=== PATIENT | male | born 1960 | race Caucasian/White ===

== ENCOUNTER 2019-02-19 20:57 | Emergency (ER) | payer BC ==
[~2019-02-19] VITALS: Ht 175.3 cm; Wt 102.7 kg
[2019-02-19] MEDS ORDERED: BUPROPION HCL150 M2 PO (21:30)
[2019-02-19] MEDS ORDERED: SIMVASTATIN40 MG PO (21:31)
[2019-02-19] MEDS ORDERED: ARIPIPRAZOLE10 MG PO (21:31)
[2019-02-19] MEDS ORDERED: CYANOCOBAL1000 MCG/M IJ (21:31)
[2019-02-19] MEDS ORDERED: LOPID600 MG PO (21:32)
[2019-02-19] MEDS ORDERED: OMEPRAZOLE DR40 MG PO (21:32)
[2019-02-19] MEDS ORDERED: LISINOPRIL10 M1 PO (21:32)
[2019-02-19] MEDS ORDERED: VENLAFAXINE HC150 MG PO (21:32)
[2019-02-19] MEDS ORDERED: VOLTAREN - GENE75 MG PO (22:31)
[2019-02-19 22:50] VITALS: BP 120/72
== END 2019-02-19 22:50 | disposition home or self-care (01) | DRG 563 ==
LOC: ED 20:57
DX: S93.402A Sprain of unspecified ligament of left ankle, initial encounter (principal); S93.602A Unspecified sprain of left foot, initial encounter; I10 Essential (primary) hypertension; W16.622A Jumping or diving into natural body of water striking bottom causing other injury, initial encounter; Y93.11 Activity, swimming; Y92.828 Other wilderness area as the place of occurrence of the external cause